=== PATIENT | female | born 1980 | race Caucasian/White ===

== ENCOUNTER 2017-07-20 10:46 | Emergency (ER) | payer OTHER ==
[2017-07-20 10:49] VITALS: BP 132/81; PULSE 76; TEMP 97.9; BMI 32.5
--- NOTE | 2017-07-20 11:20 | PDOC ---
History of Present Illness - General Chief Complaint: Toothache Stated Complaint: TOOTHACHE Time Seen by Provider: 07/20/17 11:02 History Source: Patient Exam Limitations: No Limitations - History of Present Illness Initial Comments: 07/20/17 11:53 37 y/o female with swelling and pain to her right upper quadrant of mouth since yesterday. Pt states called her dentist but does not have an appt until saturday. Pt Denies neck pain, fever, or difficulty swallowing Timing/Duration: 24 hours Severity: mild Associated Symptoms: reports: denies symptoms Past History - Travel Traveled outside of the country in the last 30 days: No - Past Medical History Allergies/Adverse Reactions: Allergies Allergy/AdvReac Type Severity Reaction Status Date / Time No Known Allergies Allergy Verified 07/20/17 10:50 Home Medications: Ambulatory Orders Clindamycin [Cleocin -] 300 mg PO TID #21 capsule 07/20/17 Ibuprofen [Motrin -] 600 mg PO TID PRN #21 tablet 07/20/17 Asthma: Yes COPD: No - Suicide/Smoking/Psychosocial Hx Smoking History: Never smoked Information on smoking cessation initiated: No Hx Alcohol Use: No Drug/Substance Use Hx: No Substance Use Type: None Patient Lives Alone: No Lives with/in: spouse/SO Review of Systems - Review of Systems Able to Perform ROS?: Yes Constitutional: No: Symptoms Reported HEENTM: Yes: Mouth Pain, Dental Problems Respiratory: No: Symptoms reported Cardiac (ROS): No: Symptoms Reported ABD/GI: No: Symptoms Reported : No: Symptoms Reported Musculoskeletal: No: Symptoms Reported Integumentary: No: Symptoms Reported *Physical Exam - Vital Signs Last Vital Signs Temp Pulse Resp BP Pulse Ox 97.9 F 76 19 132/81 99 07/20/17 10:47 07/20/17 10:47 07/20/17 10:47 07/20/17 10:47 07/20/17 10:47 - Physical Exam General Appearance: Yes: Nourished, Appropriately Dressed. No: Apparent Distress HEENT: positive: Other (RUQ with gingivits, excessive palgue and erytgem a at gum line. Noted decayed #2 without drainage) Neck: positive: Supple Respiratory/Chest: positive: Lungs Clear, Normal Breath Sounds. negative: Respiratory Distress, Accessory Muscle Use Cardiovascular: positive: Regular Rhythm, Regular Rate. negative: Murmur Neurologic: positive: Motor Strength 5/5 Medical Decision Making - Medical Decision Making 07/20/17 11:22 Pt with noted ruq dental abscess. Pt ordered for clindamycin and motrin *DC/Admit/Observation/Transfer Diagnosis at time of Disposition: Dental abscess - Discharge Dispostion Disposition: HOME Condition at time of disposition: Good - Prescriptions Prescriptions: Clindamycin [Cleocin -] 300 mg PO TID #21 capsule Ibuprofen [Motrin -] 600 mg PO TID PRN #21 tablet PRN Reason: Pain - Referrals - Patient Instructions Printed Discharge Instructions: DI for Tooth Abscess Additional Instructions: Take antibiotic until completed. Take motrin as needed for pain. Follow up with dentist on Saturday. - Post Discharge Activity
== END 2017-07-20 11:30 | disposition home or self-care (01) ==
LOC: JERFT 10:46
DX: K04.7 Periapical abscess without sinus (principal)
CPT/HCPCS: 99281-25

== ENCOUNTER 2018-06-11 07:58 | Emergency (ER) | payer OTHER ==
[2018-06-11 08:28] VITALS: BP 106/69; PULSE 70; TEMP 98.4; BMI 28.8
--- NOTE | 2018-06-11 08:44 | PDOC ---
History of Present Illness - General Chief Complaint: Pain Stated Complaint: PAIN Time Seen by Provider: 06/11/18 08:27 History Source: Patient Exam Limitations: No Limitations - History of Present Illness Initial Comments: 06/11/18 08:57 Patient is a 37-year-old female past medical history of RA, who presents to the emergency department today for generalized joint aches, shoulder pain, wrist pain, elbow pain, finger pain, knee pain bilaterally. Patient states her symptoms started last night. She is treated by Dr. Orona, who has her taking methotrexate weekly. Patient states that she is compliant with the medication. She states that today she is having a flare. She has not had a flare to this date. Denies fevers, chills, weakness, dizziness, lightheadedness, chest pain or difficulty breathing. Past History - Travel Traveled outside of the country in the last 30 days: No Close contact w/someone who was outside of country & ill: No - Past Medical History Allergies/Adverse Reactions: Allergies Allergy/AdvReac Type Severity Reaction Status Date / Time shellfish derived AdvReac Mild Itching Verified 06/11/18 08:16 Home Medications: Ambulatory Orders Folic Acid 1 mg PO DAILY 06/11/18 Methotrexate [Mexate -] 15 mg PO Q7D 06/11/18 Methylprednisolone [Medrol Dose Olu] 4 mg PO ASDIR #21 tablet 06/11/18 Naproxen [Naprosyn -] 500 mg PO BID 06/11/18 Asthma: Yes COPD: No Other medical history: Rheumatiod arthritis - Suicide/Smoking/Psychosocial Hx Smoking History: Never smoked Have you smoked in the past 12 months: No Information on smoking cessation initiated: No Hx Alcohol Use: No Drug/Substance Use Hx: No Substance Use Type: None Review of Systems - Review of Systems Able to Perform ROS?: Yes Comments:: 06/11/18 08:44 CONSTITUTIONAL: Absent: fever, chills, diaphoresis, generalized weakness, malaise, loss of appetite HEENT: Absent: rhinorrhea, nasal congestion, throat pain, throat swelling, difficulty swallowing, mouth swelling, ear pain, eye pain, visual Changes CARDIOVASCULAR: Absent: chest pain, loss of consciousness, palpitations, irregular heart rate, peripheral edema RESPIRATORY: Absent: cough, shortness of breath, dyspnea with exertion, orthopnea, wheezing, stridor, hemoptysis GASTROINTESTINAL: Absent: abdominal pain, abdominal distension, nausea, vomiting, diarrhea, constipation, melena, hematochezia GENITOURINARY: Absent: dysuria, frequency, urgency, hesitancy, hematuria, flank pain, genital pain MUSCULOSKELETAL: Present: generalized arthralgia; hx of rheumatoid Absent: myalgia, joint swelling SKIN: Absent: rash, itching, pallor HEMATOLOGIC/IMMUNOLOGIC: Absent: easy bleeding, easy bruising, lymphadenopathy, frequent infections ENDOCRINE: Absent: unexplained weight gain, unexplained weight loss, heat intolerance, cold intolerance NEUROLOGIC: Absent: headache, focal weakness or paresthesias, dizziness, unsteady gait, seizure, mental status changes, bladder or bowel incontinence PSYCHIATRIC: Absent: anxiety, depression, suicidal or homicidal ideation, hallucinations. Is the patient limited Kazakh proficient: No *Physical Exam - Vital Signs Last Vital Signs Temp Pulse Resp BP Pulse Ox 98.4 F 70 18 106/69 100 06/11/18 08:16 06/11/18 08:16 06/11/18 08:16 06/11/18 08:16 06/11/18 08:16 - Physical Exam Comments: 06/11/18 08:44 GENERAL: Well developed, well nourished. Awake and alert. No acute distress. NECK: Supple. Full ROM. No JVD. Carotid pulses 2+ and symmetric, without bruits. No thyromegaly. No lymphadenopathy. MUSCULOSKELETAL Normal range of motion at all joints. Pain with motion of fingers, wrists, shoulders, and knees b/l. Assessment Analyst strength 5/5 b/l.No bony deformities or tenderness. No CVA tenderness. EXTREMITIES: No cyanosis. No clubbing. No edema. No calf tenderness. SKIN: Warm and dry. Normal capillary refill. No rashes. No jaundice. NEUROLOGICAL: Alert, awake, appropriate. Cranial nerves 2-12 intact. No deficits to light touch and temperature in face, upper extremities and lower extremities. No motor deficits in the in face, upper extremities and lower extremities. Normoreflexic in the upper and lower extremities. Normal speech. Toes are down- going bilaterally. Gait is normal without ataxia. PSYCHIATRIC: Cooperative. Good eye contact. Appropriate mood and affect. Medical Decision Making - Medical Decision Making 06/11/18 08:57 Patient is a 37-year-old female past medical history of RA who presents to the emergency department today for a flare causing bilateral shoulder, elbow, wrist , finger and knee pain. Patient is compliant with her methotrexate and naproxen. She states that her medication is not helping her symptoms at this time. Physical exam is grossly normal. No tenderness to palpation, however there is pain to the joints with age of motion exercises. We'll treat with steroids at this time. Patient states that she will follow up with her chocolate coater tomorrow. Discharge home. I discussed the physical exam findings, ancillary test results and final diagnoses with the patient. I answered all of the patient's questions. The patient was satisfied with the care received and felt comfortable with the discharge plan and treatment plan. The Patient agrees to follow up with the primary care physician/specialist within 24-72 hours. Return precautions were given. *DC/Admit/Observation/Transfer Diagnosis at time of Disposition: Rheumatoid arthritis flare - Discharge Dispostion Disposition: HOME Condition at time of disposition: Stable Decision to Admit order: No - Prescriptions Prescriptions: Methylprednisolone [Medrol Dose Olu] 4 mg PO ASDIR #21 tablet - Referrals Referrals: Sofya Hennessy [Primary Care Provider] - Terry Orona MD [Staff Physician] - - Patient Instructions Printed Discharge Instructions: DI for Rheumatoid Arthritis Additional Instructions: You are having a flare of your rheumatoid arthritis. You were given your first dose of steroids today. Please pick up driver the Medrol Dosepak and start taking it tomorrow. Follow the dosing instruction on the package. Continue taking your methotrexate as previously prescribed. Follow-up with tomorrow. Return to the emergency department for worsening pain, numbness and tingling to the extremities, or if you have any changes in your symptoms. - Post Discharge Activity Forms/Work/School Notes: Back to Work
[2018-06-11] MEDS ORDERED: predniSONE 20 MG TABLET (UD) PO ONE (08:53)
[2018-06-11] MEDS ORDERED: predniSONE 20 MG TABLET (UD) ONE (09:04)
== END 2018-06-11 09:17 | disposition home or self-care (01) ==
LOC: JERFT 07:58 → JER 07:58 → JERFT 09:17
DX: R05 Cough (principal); M06.80 Other specified rheumatoid arthritis, unspecified site
CPT/HCPCS: 99281-25

== ENCOUNTER 2020-06-26 12:01 | Emergency (ER) | payer OTHER ==
[2020-06-26 12:52] VITALS: BP 133/79; PULSE 91; TEMP 97.8; BMI 25.6
== END 2020-06-26 13:13 | disposition home or self-care (01) ==
LOC: JERFT 12:01
DX: R09.81 Nasal congestion (principal); U07.1 COVID-19
CPT/HCPCS: 71045-TC-FY; 99284-25; C9803; U0003

== ENCOUNTER 2020-12-08 07:47 | Emergency (ER) | payer OTHER ==
[2020-12-08 07:55] VITALS: BP 129/74; PULSE 84; TEMP 98.3; BMI 30.7
[2020-12-08] MEDS ORDERED: KETOROLAC TROMETHAMINE 30 MG/1 ML VIAL IM ONE (08:31)
[2020-12-08] MEDS ORDERED: METHOCARBAMOL 500 MG TABLET PO ONE (08:31)
[2020-12-08] MEDS ORDERED: METHOCARBAMOL 500 MG TABLET ONE (08:39)
[2020-12-08] MEDS ORDERED: KETOROLAC TROMETHAMINE 30 MG/1 ML VIAL ONE (08:39)
== END 2020-12-08 09:30 | disposition home or self-care (01) ==
LOC: JER 07:47
PROC: 3E0233Z Introduction of Anti-inflammatory into Muscle, Percutaneous Approach (ICD-10-PCS; principal; 2020-12-08)
DX: M62.830 Muscle spasm of back (principal); S39.012A Strain of muscle, fascia and tendon of lower back, initial encounter
CPT/HCPCS: 99284-25

== ENCOUNTER 2022-08-12 21:36 | Emergency (ER) | payer OTHER ==
[2022-08-12 21:48] VITALS: BP 112/72; PULSE 83; RESP 18; TEMP 98.4; BMI 25.6
== END 2022-08-12 23:46 | disposition home or self-care (01) ==
LOC: JERFT 21:36 → JER 21:36
DX: S93.491A Sprain of other ligament of right ankle, initial encounter (principal); X50.0XXA Overexertion from strenuous movement or load, initial encounter; W10.9XXA Fall (on) (from) unspecified stairs and steps, initial encounter
CPT/HCPCS: 73610-TC-RT-FY; 73630-TC-RT-FY; 99283-25

== ENCOUNTER 2023-04-09 07:31 | Emergency (ER) | payer SELFPAY ==
[2023-04-09 07:37] VITALS: BP 118/73; PULSE 77; RESP 20; TEMP 98.3; BMI 26.6
== END 2023-04-09 10:07 | disposition home or self-care (01) ==
LOC: JERFT 07:31
DX: L03.312 Cellulitis of back [any part except buttock and flank] (principal); L53.9 Erythematous condition, unspecified
CPT/HCPCS: 99283-25; 99284-25

== ENCOUNTER 2023-05-03 07:04 | Emergency (ER) | payer OTHER ==
[2023-05-03 07:12] VITALS: BP 118/75; PULSE 75; RESP 18; TEMP 98.3; BMI 27.4
== END 2023-05-03 08:52 | disposition home or self-care (01) ==
LOC: JER 07:04
DX: L02.212 Cutaneous abscess of back [any part, except buttock and flank] (principal); L03.312 Cellulitis of back [any part except buttock and flank]
CPT/HCPCS: 99283-25